=== PATIENT | male | born 1985 | race American Indian/Alaskan Native ===

== ENCOUNTER 2021-04-01 14:04 | Outpatient (CLI) | payer OTHER ==
--- NOTE | 2021-04-01 18:05 | Magnetic Resonance Report ---
MR LE joint LT wo con INDICATION / CLINICAL INFORMATION: PAIN IN LEFT KNEE M25.562. TECHNIQUE: Multiplanar, multisequence MR images were obtained. Routine MRI of the left knee obtained without IV contrast. COMPARISON: None available. FINDINGS: There is abnormal signal identified throughout much of the mid substance and superior aspect of the A CL. There is increased marrow signal identified involving the medial tibial plateau concerning for co ntusion. There is evidence of sprain involving the MCL. The medial and the lateral menisci are grossly intact. The posterior lateral corner structures are unremarkable. The extensor apparatus is intact. There is evidence of a ruptured popliteal cyst. IMPRESSION: 1. Moderate sprain involving the midsubstance of the ACL. 2. Grade 1 sprain involving the MCL. 3. No high-grade meniscal tear identified. 4. Mild osseous contusion involving the posterior aspect of the medial tibial plateau. Signer Name: Steve Vazquez MD Signed: 04/01/2021 6:01 PM Workstation Name: [id number]
== END 2021-04-01 14:05 | disposition home or self-care (01) ==
LOC: SPVIMAG 14:04
PROVIDERS: ATTEND Orthopaedic Surgery
DX: S83.92XA Sprain of unspecified site of left knee, initial encounter (principal); S83.8X2A Sprain of other specified parts of left knee, initial encounter; X58.XXXA Exposure to other specified factors, initial encounter; Y93.89 Activity, other specified; Y92.89 Other specified places as the place of occurrence of the external cause; Y99.8 Other external cause status
CPT/HCPCS: 73721